=== PATIENT | female | born 1975 | race Hispanic/Latino ===

== ENCOUNTER 2024-07-05 10:40 | Emergency (ER) | payer BC ==
[~2024-07-05] VITALS: Ht 157.5 cm; Wt 60.8 kg
[2024-07-05 10:47] VITALS: BP 151/93
[2024-07-05] MEDS ORDERED: LORA10TA7 PO (10:54)
[2024-07-05] MEDS ORDERED: AMOX1TAB16 PO (10:54)
[2024-07-05] MEDS ORDERED: FLUT16H NS (10:54)
--- NOTE | 2024-07-05 10:55 | ERN ---
General Chief Complaint: Congestion Stated Complaint: COUGH Time Seen by MD: 10:41 Source: patient History of Present Illness Initial Comments PATIENT IS A 49-YEAR-OLD FEMALE COMING IN TO BE EVALUATED FOR COUGH AND CONGESTION. PATIENT STATES THAT SHE HAS BEEN HAVING THIS FOR ONE WEEK. PATIENT WAS EVALUATED ANOTHER FACILITY AND WAS GIVEN SOME ANTIBIOTIC INJECTION. PATIENT STATES THAT SHE ALSO RECEIVED SOME NEBULIZED TREATMENTS AT THE TIME. SUBJECTIVE FEVER. Allergies: Coded Allergies: No Known Drug Allergies (Unverified Allergy, Unknown, 07/05/24) ROS Dictation CONSTITUTIONAL: NO CHILLS, FEVER, NO WEAKNESS, NO DIAPHORESIS, NO MALAISE. HEAD/FACE: NO SIGNS OF TRAUMA. EENT: NO EYE PAIN, NO BLURRED VISION, NO TEARING, NO DOUBLE VISION, NO EAR PAIN, NO EAR DISCHARGE, NO NOSE PAIN, NO NASAL CONGESTION, NO THROAT PAIN, NO THROAT SWELLING, NO MOUTH PAIN. RESPIRATORY: COUGH, NO ORTHOPNEA, NO SOB, NO STRIDOR, NO WHEEZING. CARDIOVASCULAR: NO CHEST PAIN, NO EDEMA, NO PALPITATIONS, NO SYNCOPE. GASTROINTESTINAL/ABDOMINAL: NO ABDOMINAL PAIN, NO CONSTIPATION, NO DIARRHEA, NO NAUSEA, NO VOMITING. GENITOURINARY: NO ABNORMAL DISCHARGE, NO DYSURIA, NO FREQUENT URINATION, NO HEMATURIA. NO COMPLAINTS OF PAIN IN THE GENITALS. MUSCULOSKELETAL: NO BACK PAIN, NO GOUT, NO JOINT PAIN, NO JOINT SWELLING, NO MUSCLE PAIN, NO MUSCLE STIFFNESS, NO NECK PAIN. INTEGUMENTARY: NO CHANGE IN COLOR, NO CHANGE IN HAIR/NAILS, NO DRYNESS, NO LESION, NO LUMPS, NO RASH. NEUROLOGICAL/PSYCH: NO ANXIETY, NOT DEPRESSED, NO EMOTIONAL PROBLEM, NO HEADACHE, NO NUMBNESS, NO PRE-EXISTING DEFICIT, NO HISTORY OF SEIZURES, NO TREMORS, NO WEAKNESS. HEMATOLOGIC/LYMPHATIC: NOT ANEMIC, NO HISTORY OF BLOOD CLOTS, NO APPARENT BLEEDING, NO BRUISING, GLANDS NOT SWOLLEN. ALL SYSTEMS NEGATIVE, EXCEPT NOTED. Physical Exam Physical Exam Dictation VITAL SIGNS: REVIEWED. GENERAL APPEARANCE: ALERT, ORIENTED X3, NO ACUTE DISTRESS, OBESE. HEAD AND FACE: NON-TRAUMATIC. EYES: PERRL, PINK CONJUNCTIVAS, EYELID NO TRAUMA, ANTERIOR CHAMBER CLEAR. EARS: PINNAS INTACT AND NO SIGNS OF TRAUMA OR ERYTHEMA. EAR CANALS CLEAR AND NO DISCHARGE. TMS ERYTHEMA. NOSE: NO DISCHARGE, NO BLEEDING. OROPHARYNX: MOUTH NORMAL, TEETH NO CARIES, TONGUE PINK. PHARYNX CLEAR, ERYTHEMA. TONSILS NO EXUDATES, NO ABSCESSES NOTED. MUCOUS MEMBRANE MOIST. NECK: SUPPLE, NON-TENDER, NO THYROMEGALY, NO MASSES, NO JVD, NO BRUITS. BREAST: DEFERRED. CHEST: NO TENDERNESS, NO CREPITUS, NO PARADOXICAL MOVEMENT, NO RETRACTIONS. LUNGS: CLEAR, WELL-VENTILATED, SYMMETRIC, NO RALES, NO WHEEZING, NO RHONCHI, NO STRIDOR, GOOD BREATH SOUNDS BILATERALLY. HEART: REGULAR RATE, REGULAR RHYTHM, NO MURMUR, NO GALLOPS. VASCULAR: NO PERIPHERAL EDEMA. ABDOMEN: SOFT, POSITIVE BOWEL SOUNDS, NONDISTENDED, NO GUARDING, NONTENDER, NO REBOUND, NO MASSES NO HEPATOMEGALY, NO SPLENOMEGALY, NO HERZOG'S SIGN, NO HERNIAS. RECTAL: DEFERRED. GENITAL: DEFERRED. NEUROLOGICAL: NORMAL SPEECH, GROSS MOTOR FUNCTION INTACT, GROSS SENSORY FUNCTION INTACT. MUSCULOSKELETAL: NECK NONTENDER, FULL RANGE OF MOTION, BACK NONTENDER, FULL RANGE OF MOTION. EXTREMITIES: NONTENDER, FULL RANGE OF MOTION. SKIN: COLOR PINK, DRY, NO TURGOR, NO RASH, NO LACERATIONS, NO ABRASIONS, NO CONTUSIONS. LYMPHATICS: DEFERRED. Results Laboratory and Microbiology Labs Reviewed?: Yes MDM MDM: DIFFERENTIAL DIAGNOSIS: RIGHT OTITIS MEDIA, URI, SINUSITIS PATIENT IS A 49-YEAR-OLD FEMALE COMING IN TO BE EVALUATED FOR A COUGH AND CONGESTION. PATIENT STATES THAT THE SYMPTOMS BEGAN ONE WEEK AGO SHE DID RECEIVE TREATMENT AT THE TIME BUT STATES THAT SYMPTOMS RESURFACE TWO DAYS AGO. ON PHYSICAL EXAM RIGHT TYMPANIC MEMBRANE ERYTHEMA NASAL TURBINATE SWELLING BILATERAL OROPHARYNGEAL ERYTHEMA. SUGGESTIVE OF RIGHT OTITIS MEDIA WITH MILD SINUSITIS. PATIENT WILL BE DISCHARGED WITH ANTIBIOTICS I ALSO ADVISED HER APPROPRIATE FOLLOW UP WITH PCP. ON PHYSICAL EXAM LUNGS ARE CLEAR TO AUSCULTATION I ADVISED HER NO NEBULIZED TREATMENTS NEEDED AT THE TIME. ED Course Vital Signs Date Time Temp Pulse Resp B/P (MAP) Pulse Ox O2 Delivery O2 Flow Rate FiO2 07/05/24 10:47 100.0 105 16 151/93 98 Room Air* 0 21 DX & DISP Disposition: Discharge Departure Impression: Primary Impression: Sinusitis Additional Impression: Right otitis media Condition: Stable Scripts Loratadine (Loratadine) 10 Mg Tablet 1 TAB PO DAILY for allergy symptoms for 30 Days, #30 TAB 0 Refills Prov: THOR LOPEZ MD 07/05/24 Fluticasone Propionate (Flonase Nasal [place]) 50 Mcg/Actuation [place] 2 SPRAY NS DAILY, #16 GM 0 Refills Prov: THOR LOPEZ MD 07/05/24 Amoxicillin/Potassium Clav (Amox Tr-K Clv 875-125 mg Tab) 875 Mg-125 Mg Tablet 1 TAB PO BID for 10 Days, #20 TAB 0 Refills Prov: THOR LOPEZ MD 07/05/24 Additional Instructions: FOLLOW-UP WITH PRIMARY CARE PROVIDER IN 1 TO 2 DAYS. TAKE MEDICATIONS DIRECTED HERE IN THE EMERGENCY ROOM. OKAY TO CONTINUE HOME MEDICATIONS UNLESS OTHERWISE DISCUSSED DURING YOUR VISIT IN THE EMERGENCY ROOM TODAY. RETURN TO YOUR NEAREST EMERGENCY ROOM IF SYMPTOMS WORSEN OR IF THERE IS NO IMPROVEMENT. CALL 911 IF YOU NEED IMMEDIATE ASSISTANCE. TAKE TYLENOL [id number] NEEDED AND IF NO CONTRAINDICATIONS ARE PRESENT. INCREASE ORAL HYDRATION. A WOUND CULTURE OR URINE CULTURE WAS ORDERED HERE IN THE EMERGENCY ROOM DEPARTMENT PLEASE FOLLOW-UP WITH PRIMARY CARE PROVIDER AND ADVISE THEM TO GET REPEAT PORTS FROM OUR FACILITY. IF YOU HAD ANY CORY WRAP/SPLINTS THAT WERE APPLIED HERE, PLEASE DO NOT REMOVE THEM UNTIL YOU SEE YOUR PRIMARY CARE OR SPECIALTY. REFERRALS: Referrals: DARIO CHRISTOPHER MD Time of Disposition: 10:54 THOR LOPEZ MD Jul 05, 2024 10:55
[2024-07-05] MEDS ORDERED: acetaMINOPHEN 500 MG TABLET PO ONE (11:00)
[2024-07-05 12:41] VITALS: PULSE 91; RESP 16; TEMP 98.3; O2SAT 100
== END 2024-07-05 12:49 | disposition home or self-care (01) ==
LOC: EDH 10:40
DX: J32.9 Chronic sinusitis, unspecified (principal); H66.91 Otitis media, unspecified, right ear
CPT/HCPCS: 99283